=== PATIENT | female | born 1945 | race Caucasian/White ===

== ENCOUNTER 2019-05-29 16:37 | Emergency (ER) | payer MEDICARE, BC ==
--- NOTE | 2019-05-29 18:03 | ED ---
General Adult HPI - General Chief complaint: Fall Stated complaint: fall, tail bone pain Time Seen by Provider: 05/29/19 16:58 Source: patient, RN notes reviewed Mode of arrival: ambulatory Limitations: no limitations - History of Present Illness Initial comments: Danielle is a 74-year-old female with a past medical history of CAD, COPD, hypertension who presents to the emergency department for a chief complaint of fall. 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 States that since that time she has had tailbone pain. Denies hitting her head. Denies any other injuries. Denies any weakness of the lower extremities. Denies any changes in bladder or bowel movements.Patient has no other complaints at this time including shortness of breath, chest pain, abdominal pain, nausea or vomiting, headache, or visual changes. - Related Data Allergies Allergy/AdvReac Type Severity Reaction Status Date / Time No Known Allergies Allergy Verified 05/29/19 16:46 Review of Systems ROS Statement: Those systems with pertinent positive or pertinent negative responses have been documented in the HPI. ROS Other: All systems not noted in ROS Statement are negative. Past Medical History Past Medical History: Coronary Artery Disease (CAD), COPD, Hypertension, Thyroid Disorder History of Any Multi-Drug Resistant Organisms: None Reported Past Surgical History: Section, Tonsillectomy Past Psychological History: No Psychological Hx Reported Smoking Status: Current every day smoker Past Alcohol Use History: Occasional Past Drug Use History: None Reported General Exam Limitations: no limitations General appearance: alert, in no apparent distress Head exam: Present: atraumatic, normocephalic, normal inspection Eye exam: Present: normal appearance, PERRL, EOMI. Absent: scleral icterus, conjunctival injection, periorbital swelling ENT exam: Present: normal exam, mucous membranes moist Neck exam: Present: normal inspection, full ROM. Absent: tenderness, meningismus, lymphadenopathy Respiratory exam: Present: normal lung sounds bilaterally. Absent: respiratory distress, wheezes, rales, rhonchi, stridor Cardiovascular Exam: Present: regular rate, normal rhythm, normal heart sounds. Absent: systolic murmur, diastolic murmur, rubs, gallop, clicks Back exam: Present: other (Patient has coccyx tenderness, no lumbar spine tenderness). Absent: vertebral tenderness Neurological exam: Present: alert, oriented X3, CN II-XII intact Psychiatric exam: Present: normal affect, normal mood Course Vital Signs 05/29/19 16:43 Temperature 98.4 F Pulse Rate 80 Respiratory 16 Rate Blood Pressure 158/85 O2 Sat by Pulse 98 Oximetry Medical Decision Making - Medical Decision Making 74-year-old female percent to the emergency department for a chief complaint of fall 2 days ago. Patient was trying to put up a child when she fell backwards onto her tailbone. States she has to lay on her side because it hurts to lay on her tailbone. Denies hip pain. Denies upper back pain. No lumbar spine tenderness. Patient does have coccygeal tenderness. X-ray of the pelvis shows a normal pelvis. Straight of the lumbar spine shows no acute abnormality. There is a 10% anterior wedging of L1 that is probably old. X-ray shows a negative sacrum and coccyx exam as well. Discussed use of narcotic medicine in elderly causing palpitations including risk of falls. However patient's family very much wants patient to have pain medication as she is not sleeping. Patient will be given a starter pack of Tylenol 3 but recommended following up with primary care for further pain medication management. Recommended returning here if she has any worsening symptoms. Disposition Clinical Impression: Back pain, Coccygeal contusion Disposition: HOME SELF-CARE Condition: Good Instructions (If sedation given, give patient instructions): Coccyx Injury (ED) Additional Instructions: Please take Tylenol 3 for pain. Make sure to follow up with your primary care tomorrow. Return to the emergency department if you have any worsening symptoms. Is patient prescribed a controlled substance at d/c from ED?: No Referrals: João Galicia DO [Primary Care Provider] - 1-2 days Time of Disposition: 18:51
--- NOTE | 2019-05-29 18:15 | XR ---
EXAMINATION TYPE: XR sacrum coccyx DATE OF EXAM: 05/29/2019 COMPARISON: NONE HISTORY: Fall. Pain. TECHNIQUE: 3 views FINDINGS: Segments have normal alignment. Sacroiliac joints appear intact. There is no evidence of a fracture. IMPRESSION: Negative sacrum and coccyx exam.
--- NOTE | 2019-05-29 18:16 | XR ---
EXAMINATION TYPE: XR pelvis AP view DATE OF EXAM: 05/29/2019 COMPARISON: NONE HISTORY: Pain TECHNIQUE: Single view FINDINGS: Pelvic ring is intact. Proximal femurs and hip joints are intact. Sacroiliac joints appear normal. IMPRESSION: Normal pelvis.
--- NOTE | 2019-05-29 18:18 | XR ---
EXAMINATION TYPE: XR lumbar spine 2 or 3V DATE OF EXAM: 05/29/2019 COMPARISON: NONE HISTORY: Fall. Pain. TECHNIQUE: 3 views FINDINGS: Vertebra have normal alignment. There is some osteopenia. Posterior elements are intact. Th ere is 10% anterior wedging of L1 vertebra that is probably old. Sacroiliac joints are intact. IMPRESSION: No acute abnormality of the lumbar spine.
[2019-05-29] MEDS ORDERED: Acetaminophen-Codeine 300-30mg TAB PO STA (18:51)
[2019-05-29] MEDS ORDERED: ACET/COD 300 MG/30 MG STARTER PACK 6 TAB BTL PO STA (18:51)
[2019-05-29 19:05] VITALS: BP 128/79; PULSE 66; RESP 18; TEMP 98.7
== END 2019-05-29 19:04 | disposition home or self-care (01) ==
LOC: EC 16:37
DX: S30.0XXA Contusion of lower back and pelvis, initial encounter (principal); F17.200 Nicotine dependence, unspecified, uncomplicated; W01.0XXA Fall on same level from slipping, tripping and stumbling without subsequent striking against object, initial encounter; Y93.89 Activity, other specified; Y92.009 Unspecified place in unspecified non-institutional (private) residence as the place of occurrence of the external cause
CPT/HCPCS: 72100; 72170; 72220; 99283

== ENCOUNTER 2019-06-12 15:49 | Emergency (ER) | payer BC, MEDICARE ==
[2019-06-12 16:07] VITALS: TEMP 98.1
[2019-06-12] MEDS ORDERED: KETOROLAC 30 MG/ML 1 ML VIAL IM STA ×2 (16:38→19:19)
--- NOTE | 2019-06-12 17:26 | ED ---
Trauma HPI - General Chief Complaint: Extremity Injury, Upper Stated Complaint: LOWER BACK AND HIP PAIN Time Seen by Provider: 06/12/19 16:18 Source: patient Mode of arrival: ambulatory Limitations: no limitations - History of Present Illness Initial Comments: The patient is a 74-year-old female presents to the emergency room with reported coccyx pain. The patient sustained a fall on May 28. She was brought into the emergency department the following day by her daughter. At that time she did have x-rays performed which demonstrated no acute fracture. She then followed up after that with her primary care physician. Primary care physician did put her on Motrin and Tylenol threes. She states that she's been taking the medication without improvement in her pain. Daughter states the pain has been so significant that he she is not eating. She reports nausea. She continues to ambulates on her own without difficulty. The pain is located in the patient's tailbone without radiation. States it is tender to touch. She denies any hip pain or lower lumbar pain. The patient for sustained a fall when she was attempting to catch a baby. She landed backwards on her tailbone. She denies hitting her head or loss of consciousness. She denies any weakness or numbness or tingling in her lower extremities. She denies any saddle anesthesia or bowel or bladder incontinence or retention. She denies dysuria, hematuria or difficulty voiding. She denies any melanotic stools or hematochezia. She does admit to constipation from the Tylenol threes. Denies diarrhea. She denies any pain in her knees ankles are in her feet. She does have an appointment on Monday with her primary care physician however as the pain is not controlled they do present sooner for evaluation - Related Data Home Medications Medication Instructions Recorded Confirmed Acetaminophen with Codeine 1 tab PO Q6H PRN 06/12/19 06/12/19 [Tylenol w/codeine #3] Ibuprofen [Motrin] 800 mg PO DAILY PRN 06/12/19 06/12/19 Levothyroxine Sodium [Synthroid] 75 mcg PO DAILY 06/12/19 06/12/19 Lisinopril [Zestril] 10 mg PO DAILY 06/12/19 06/12/19 amLODIPine [Norvasc] 5 mg PO BID 06/12/19 06/12/19 Previous Rx's Medication Instructions Recorded Docusate [Colace] 100 mg PO DAILY #30 capsule 06/12/19 Hydrocodone/Acetaminophen [Clyde 1 tab PO Q6HR PRN #12 tab 06/12/19 5-325] Ibuprofen 400 mg PO Q8HR #20 tablet 06/12/19 Allergies Allergy/AdvReac Type Severity Reaction Status Date / Time No Known Allergies Allergy Verified 06/12/19 16:45 Review of Systems ROS Statement: Those systems with pertinent positive or pertinent negative responses have been documented in the HPI. ROS Other: All systems not noted in ROS Statement are negative. Past Medical History Past Medical History: Coronary Artery Disease (CAD), COPD, Hypertension, Thyroid Disorder History of Any Multi-Drug Resistant Organisms: None Reported Past Surgical History: Section, Tonsillectomy Past Psychological History: No Psychological Hx Reported Smoking Status: Current every day smoker Past Alcohol Use History: Occasional Past Drug Use History: None Reported General Exam Limitations: no limitations Course Vital Signs 06/12/19 06/12/19 16:02 19:44 Temperature 98.1 F Pulse Rate 72 76 Respiratory 16 18 Rate Blood Pressure 159/81 148/76 O2 Sat by Pulse 96 96 Oximetry Medical Decision Making - Medical Decision Making Upon arrival the patient was placed into room 13. A thorough history and physical exam was performed. Because of the reported symptoms I did provide the patient with 30 mg IM of Toradol. She is sent over for a CT of her abdomen and pelvis, lumbar spine and sacrum. The patient was reevaluated admits to improvement in her pain with the Toradol administration. Discuss results of the imaging with the patient. I informed her that there does not appear to be any acute fractures at this time. The patient is requesting a second dose of Toradol and I did provide this to the patient. I discussed diagnosis, differential and treatment options. The patient is requesting something stronger than Tylenol threes at home. I will provide the patient with a Clyde 5/325 mg and provide her with a short course home. She does sign and opioids start talking form after the side effect profiles discussed. The patient is to continue alternating Clyde with Motrin. She is to stop taking the Tylenol threes. The patient does have significant constipation on imaging and therefore she is given a bottle of mag citrate with directions. She is to follow-up with her primary care doctor at her scheduled appointment on Monday. She may need an MRI. The patient was reevaluated and continued to not show signs of cauda equina. She was then discharged home ambulatory in stable condition Disposition Clinical Impression: Coccygeal contusion, Back pain Disposition: HOME SELF-CARE Condition: Stable Instructions (If sedation given, give patient instructions): Coccyx Injury (ED) Additional Instructions: Please follow-up with your primary care doctor on Monday. You may need an MRI. Return to the emergency room for any new or worsening symptoms Prescriptions: Docusate [Colace] 100 mg PO DAILY #30 capsule Ibuprofen 400 mg PO Q8HR #20 tablet Hydrocodone/Acetaminophen [Clyde 5-325] 1 tab PO Q6HR PRN #12 tab PRN Reason: Pain Is patient prescribed a controlled substance at d/c from ED?: Yes When asked, does pt state using other controlled substances?: Yes If prescribed controlled substance>3 days was MAPS reviewed?: Prescribed <3 Days If opioid is for acute pain is fill amount 7 days or less?: Yes If Rx opioid, was Start Talking consent form obtained?: Yes Referrals: João Galicia DO [Primary Care Provider] - 1-2 days Time of Disposition: 19:24
--- NOTE | 2019-06-12 18:44 | CT ---
EXAMINATION TYPE: CT sacrum wo con DATE OF EXAM: 06/12/2019 COMPARISON: None HISTORY: Low back and hip pain. CT DLP: 235.4 (all 3 exams scanned together) mGycm Automated exposure control for dose reduction was used. FINDINGS: Axial and coronal and sagittal high resolution bone reconstruction algorithm CT data sets w ere obtained. Axial soft tissue reconstruction high-resolution CT imaging was also obtained. There is no fracture or malalignment. No focal skeletal lesion. The sacroiliac joints are congruent. There is generalized osteopenia. Spinal stenosis pattern noted at the L4-5 and L5-S1 levels. IMPRESSION: 1. No acute process. 2. Generalized osteopenia. 3. Spondylosis.
--- NOTE | 2019-06-12 18:54 | CT ---
EXAMINATION TYPE: CT lumbar spine wo con DATE OF EXAM: 06/12/2019 6:01 PM COMPARISON: None HISTORY: Low back and hip pain. CT DLP: 235.4 mGycm Automated exposure control for dose reduction was used. TECHNIQUE: Unenhanced CT of the lumbar spine was performed. Bone and soft tissue window settings are submitted as well as coronal and sagittal reconstructions. FINDINGS: There is no fracture or malalignment. No pars interarticularis defects. No focal skeletal lesions. No incidental paraspinal pathology. Is no focal disc extrusion or protrusion. There is, however, generalized osteopenia. At L1-2 and L2-3, mild spondylosis changes but no significant findings. At L3-4 there is mild bilateral lateral recess narrowing due to mild degenerative disc bulging and bi lateral ligamentum flavum/facet hypertrophy. At L4-5 there is prominent bilateral lateral recess stenosis due to prominent circumferential disc bu lging and ligamentum flavum/facet hypertrophy. No significant neural foraminal narrowing. At L5-S1 there is mild bilateral lateral recess narrowing due to ligamentum flavum/facet hypertrophy and minimal sequestered disc bulging. IMPRESSION: 1. Negative for fracture or malalignment, or focal skeletal lesion. 2. Positive for generalized osteopenia. 3. L4-5 lateral recess stenosis.
--- NOTE | 2019-06-12 18:59 | CT ---
EXAMINATION TYPE: CT abdomen pelvis wo con DATE OF EXAM: 06/12/2019 COMPARISON: None HISTORY: Low back and hip pain. CT DLP: 235.4 mGycm Automated exposure control for dose reduction was used. TECHNIQUE: Helical acquisition of images was performed from the lung bases through the pelvis. FINDINGS: Limitation: Within the limitations of noncontrast CT, which are more pronounced given the fact that t here is so little adipose within the abdomen and pelvis of this patient, the following observations a re made. LUNG BASES: No acute findings. LIVER/GB: No significant abnormality is appreciated. PANCREAS: No significant abnormality is seen. SPLEEN: No significant abnormality is seen. ADRENALS: No significant abnormality is seen. KIDNEYS: No significant abnormality is seen. FREE AIR: No free air is visualized RETROPERITONEAL ADENOPATHY: None visualized REPRODUCTIVE ORGANS: No significant abnormality is seen URINARY BLADDER: No significant abnormality is seen. PELVIC ADENOPATHY: None visualized. OSSEOUS STRUCTURES: No new process or focal lesion. There is generalized osteopenia. BOWEL: No process. However, there is a marked volume of stool throughout the colon. IMPRESSION: 1. CONSTIPATION. 2. OSTEOPENIA.
[2019-06-12] MEDS ORDERED: HYDROcodone/APAP 5-325MG 1 EACH TAB PO STA (19:18)
[2019-06-12] MEDS ORDERED: MAGNESIUM CITRATE 296 ML BOTTLE PO ONE (19:18)
[2019-06-12 19:49] VITALS: BP 148/76; PULSE 76; RESP 18
== END 2019-06-12 19:45 | disposition home or self-care (01) ==
LOC: EC 15:49
DX: S30.0XXA Contusion of lower back and pelvis, initial encounter (principal); K59.00 Constipation, unspecified; R11.0 Nausea; I25.10 Atherosclerotic heart disease of native coronary artery without angina pectoris; I10 Essential (primary) hypertension; E07.9 Disorder of thyroid, unspecified; F17.200 Nicotine dependence, unspecified, uncomplicated; Z79.890 Hormone replacement therapy; Z79.899 Other long term (current) drug therapy; W19.XXXA Unspecified fall, initial encounter
CPT/HCPCS: 99284; 96372 ×2; 72131; 74176; 72192; J1885

== ENCOUNTER 2019-07-15 15:15 | Observation (INO) | payer BC, MEDICARE ==
[2019-07-15] MEDS ORDERED: SODIUM CHLORIDE 0.9% 1,000 ML IV ONE ×2 (15:43→20:42)
[2019-07-15 16:14] LABS: Basophils # (A) 0.1 k/uL (0-0.2); Basophils % (A) 1 %; Eosinophils # (A) 0.5 k/uL (0-0.7); Eosinophils % (A) 5 %; HCT 43.7 % (34.0-46.0); HGB 14.3 gm/dL (11.4-16.0); Lymphocytes # (A) 1.1 k/uL (1.0-4.8); Lymphocytes % (A) 9 %; MCH 31.7 pg (25.0-35.0); MCHC 32.8 g/dL (31.0-37.0); MCV 96.5 fL (80.0-100.0); Mean Platelet Volume 7.1; Monocytes # (A) 0.9 k/uL (0-1.0); Monocytes % (A) 8 %; Neutrophils # (A) 9.2 k/uL (1.3-7.7); Neutrophils % (A) 76 %; Platelet Count 539 k/uL (150-450); RBC 4.53 m/uL (3.80-5.40); RDW 13.2 % (11.5-15.5)
[2019-07-15 16:16] LABS: ALT 28 U/L (9-52); AST 25 U/L (14-36); African American GFR (CKD) >90 (>60 ml/min/1.73 sqM); Albumin 3.9 g/dL (3.5-5.0); Alkaline Phosphatase 54 U/L (38-126); Anion Gap 8 mmol/L; Blood Urea Nitrogen 21 mg/dL (7-17); Calcium 9.5 mg/dL (8.4-10.2); Carbon Dioxide 31 mmol/L (22-30); Chloride 98 mmol/L (98-107); Creatine Kinase 27 U/L (30-135); Glucose 141 mg/dL (74-99); Magnesium 2.7 mg/dL (1.6-2.3); Phosphorus 3.2 mg/dL (2.5-4.5); Potassium 4.6 mmol/L (3.5-5.1); Salicylate <1.0 mg/dL; Sodium 137 mmol/L (137-145); Total Bilirubin 0.1 mg/dL (0.2-1.3); Total Protein 6.6 g/dL (6.3-8.2)
[2019-07-15 16:19] LABS: INR 0.9 (<1.2); Partial Thromboplastin Time 23.9 sec (22.0-30.0); Prothrombin Time 9.8 sec (9.0-12.0)
[2019-07-15] MEDS ORDERED: MORPHINE SULFATE 4 MG/ML SYRINGE IVP STA (16:23)
--- NOTE | 2019-07-15 16:25 | ED ---
Altered Mental Status HPI - General Chief Complaint: Altered Mental Status Stated Complaint: Fall, dizzy Time Seen by Provider: 07/15/19 15:41 Source: patient, RN notes reviewed, old records reviewed Mode of arrival: wheelchair Limitations: no limitations - History of Present Illness Initial Comments: This is a 74-year-old female the ER with multiple complaints multiple complaints. Driving around debility and weakness and appropriateness. Patient today with severe back pain sacral pain from a fall. Patient was told that she did break her coccyx bone. Patient has no loss of bowel or bladder no neurological complaints currently. Just increasing pain on her back, generalized weakness that she does have as well as decreased appetite as cause her to have severe decrease her activities of daily living and causing family to bring her in today. Aside from pain. Patient has no specific complaints does admit to some confusion and not feeling well, weakness MD Complaint: confusion (Occasional), decreased responsiveness (Occasional), weakness -: month(s) Severity: moderate Consistency of Symptoms: waxing and waning, getting worse Context: history of similar presentation, trauma (Trauma recently within the last 6 months) Associated Symptoms: weakness, difficulty walking - Related Data Home Medications Medication Instructions Recorded Confirmed Levothyroxine Sodium [Synthroid] 75 mcg PO DAILY 06/12/19 07/15/19 Lisinopril [Zestril] 10 mg PO DAILY 06/12/19 07/15/19 amLODIPine [Norvasc] 5 mg PO DAILY 06/12/19 07/15/19 Baclofen [Lioresal] 10 mg PO Q6H PRN 07/15/19 07/15/19 Magnesium Hydroxide [Milk of 2,400 mg PO ONCE PRN 07/15/19 07/15/19 Magnesia] Wheat Dextrin [Benefiber] 1 packet PO DAILY 07/15/19 07/15/19 Previous Rx's Medication Instructions Recorded Docusate [Colace] 100 mg PO DAILY #30 capsule 06/12/19 Hydrocodone/Acetaminophen [[place] 1 tab PO Q6HR PRN #12 tab 06/12/19 5-325] Allergies Allergy/AdvReac Type Severity Reaction Status Date / Time No Known Allergies Allergy Verified 07/15/19 16:13 Review of Systems ROS Statement: Those systems with pertinent positive or pertinent negative responses have been documented in the HPI. ROS Other: All systems not noted in ROS Statement are negative. Past Medical History Past Medical History: Coronary Artery Disease (CAD), COPD, Hypertension, Thyroid Disorder History of Any Multi-Drug Resistant Organisms: None Reported Past Surgical History: Section, Tonsillectomy Past Psychological History: No Psychological Hx Reported Smoking Status: Current every day smoker Past Alcohol Use History: Occasional Past Drug Use History: None Reported General Exam Limitations: no limitations General appearance: alert, in no apparent distress Head exam: Present: atraumatic, normocephalic, normal inspection Eye exam: Present: normal appearance, PERRL, EOMI. Absent: scleral icterus, conjunctival injection, periorbital swelling ENT exam: Present: normal exam, mucous membranes moist Neck exam: Present: normal inspection. Absent: tenderness, meningismus, lymphadenopathy Respiratory exam: Present: normal lung sounds bilaterally. Absent: respiratory distress, wheezes, rales, rhonchi, stridor Cardiovascular Exam: Present: regular rate, normal rhythm, normal heart sounds. Absent: systolic murmur, diastolic murmur, rubs, gallop, clicks GI/Abdominal exam: Present: soft, normal bowel sounds. Absent: distended, tenderness, guarding, rebound, rigid Extremities exam: Present: normal inspection, full ROM, normal capillary refill. Absent: tenderness, pedal edema, joint swelling, calf tenderness Back exam: Present: normal inspection Neurological exam: Present: alert, oriented X3, CN II-XII intact Psychiatric exam: Present: normal affect, normal mood Skin exam: Present: warm, dry, intact, normal color. Absent: rash Course Vital Signs 07/15/19 07/15/19 07/15/19 15:35 18:38 19:26 Temperature 98.7 F Pulse Rate 85 74 Respiratory 16 18 Rate Blood Pressure 109/65 155/83 134/81 O2 Sat by Pulse 96 93 L Oximetry 07/15/19 19:48 Temperature 98.8 F Pulse Rate 72 Respiratory 18 Rate Blood Pressure 142/91 O2 Sat by Pulse 94 L Oximetry - Reevaluation(s) Reevaluation #1: 07/15/19 18:51 Medical records reviewed Reevaluation #2: 07/15/19 18:51 Patient has improved pain control currently Medical Decision Making - Medical Decision Making 54 female the ER for evaluation of underlying weakness. Pain. Back pain. Altered mental status not acting appropriately not functioning appropriately and activities of daily living. No significant acute cause found for patient's symptoms here in the ER. Patient also to be discharged. Patient is having continued MENTAL STATUS DOES HAVE PERIODS OF LUCIDITY. FAMILY CONCERNED OVER PATIENT'S CHRONIC UNABLE TO CONTROL PAIN WELL PATIENT'S DECREASED APPETITE AND DIMINISHED ORAL INTAKE. - Lab Data Result diagrams: 07/15/19 15:54 07/15/19 15:54 Lab Results 07/15/19 07/15/19 07/15/19 Range/Units 15:54 15:54 15:54 WBC 12.0 H (3.8-10.6) k/uL RBC 4.53 (3.80-5.40) m/uL Hgb 14.3 (11.4-16.0) gm/dL Hct 43.7 (34.0-46.0) % MCV 96.5 (80.0-100.0) fL MCH 31.7 (25.0-35.0) pg MCHC 32.8 (31.0-37.0) g/dL RDW 13.2 (11.5-15.5) % Plt Count 539 H (150-450) k/uL Neutrophils % 76 % Lymphocytes % 9 % Monocytes % 8 % Eosinophils % 5 % Basophils % 1 % Neutrophils # 9.2 H (1.3-7.7) k/uL Lymphocytes # 1.1 (1.0-4.8) k/uL Monocytes # 0.9 (0-1.0) k/uL Eosinophils # 0.5 (0-0.7) k/uL Basophils # 0.1 (0-0.2) k/uL PT (9.0-12.0) sec INR (<1.2) APTT (22.0-30.0) sec Sodium 137 (137-145) mmol/L Potassium 4.6 (3.5-5.1) mmol/L Chloride 98 (98-107) mmol/L Carbon Dioxide 31 H (22-30) mmol/L Anion Gap 8 mmol/L BUN 21 H (7-17) mg/dL Creatinine 0.61 (0.52-1.04) mg/dL Est GFR (CKD-EPI)AfAm >90 (>60 ml/min/1.73 sqM) Est GFR (CKD-EPI)NonAf 89 (>60 ml/min/1.73 sqM) Glucose 141 H (74-99) mg/dL Calcium 9.5 (8.4-10.2) mg/dL Phosphorus 3.2 (2.5-4.5) mg/dL Magnesium 2.7 H (1.6-2.3) mg/dL Total Bilirubin 0.1 L (0.2-1.3) mg/dL AST 25 (14-36) U/L ALT 28 (9-52) U/L Alkaline Phosphatase 54 (38-126) U/L Ammonia 15 (<30) umol/L Creatine Kinase 27 L (30-135) U/L Troponin I (0.000-0.034) ng/mL Total Protein 6.6 (6.3-8.2) g/dL Albumin 3.9 (3.5-5.0) g/dL Urine Color Urine Appearance (Clear) Urine pH (5.0-8.0) Ur Specific [place] (1.001-1.035) Urine Protein (Negative) Urine Glucose (UA) (Negative) Urine Ketones (Negative) Urine Blood (Negative) Urine Nitrite (Negative) Urine Bilirubin (Negative) Urine Urobilinogen (<2.0) mg/dL Ur Leukocyte Esterase (Negative) Amorphous Sediment (None) /hpf Urine Mucus (None) /hpf Salicylates <1.0 mg/dL Urine Opiates Screen (NotDetected) Ur Oxycodone Screen (NotDetected) Urine Methadone Screen (NotDetected) Ur Propoxyphene Screen (NotDetected) Ur Barbiturates Screen (NotDetected) U Tricyclic Antidepress (NotDetected) Ur Phencyclidine Scrn (NotDetected) Ur Amphetamines Screen (NotDetected) U Methamphetamines Scrn (NotDetected) U Benzodiazepines Scrn (NotDetected) Urine Cocaine Screen (NotDetected) U Marijuana (THC) Screen (NotDetected) 07/15/19 07/15/19 07/15/19 Range/Units 15:54 15:54 19:07 WBC (3.8-10.6) k/uL RBC (3.80-5.40) m/uL Hgb (11.4-16.0) gm/dL Hct (34.0-46.0) % MCV (80.0-100.0) fL MCH (25.0-35.0) pg MCHC (31.0-37.0) g/dL RDW (11.5-15.5) % Plt Count (150-450) k/uL Neutrophils % % Lymphocytes % % Monocytes % % Eosinophils % % Basophils % % Neutrophils # (1.3-7.7) k/uL Lymphocytes # (1.0-4.8) k/uL Monocytes # (0-1.0) k/uL Eosinophils # (0-0.7) k/uL Basophils # (0-0.2) k/uL PT 9.8 (9.0-12.0) sec INR 0.9 (<1.2) APTT 23.9 (22.0-30.0) sec Sodium (137-145) mmol/L Potassium (3.5-5.1) mmol/L Chloride (98-107) mmol/L Carbon Dioxide (22-30) mmol/L Anion Gap mmol/L BUN (7-17) mg/dL Creatinine (0.52-1.04) mg/dL Est GFR (CKD-EPI)AfAm (>60 ml/min/1.73 sqM) Est GFR (CKD-EPI)NonAf (>60 ml/min/1.73 sqM) Glucose (74-99) mg/dL Calcium (8.4-10.2) mg/dL Phosphorus (2.5-4.5) mg/dL Magnesium (1.6-2.3) mg/dL Total Bilirubin (0.2-1.3) mg/dL AST (14-36) U/L ALT (9-52) U/L Alkaline Phosphatase (38-126) U/L Ammonia (<30) umol/L Creatine Kinase (30-135) U/L Troponin I <0.012 (0.000-0.034) ng/mL Total Protein (6.3-8.2) g/dL Albumin (3.5-5.0) g/dL Urine Color Yellow Urine Appearance Cloudy H (Clear) Urine pH 8.5 H (5.0-8.0) Ur Specific [place] 1.015 (1.001-1.035) Urine Protein Negative (Negative) Urine Glucose (UA) Negative (Negative) Urine Ketones Negative (Negative) Urine Blood Negative (Negative) Urine Nitrite Negative (Negative) Urine Bilirubin Negative (Negative) Urine Urobilinogen <2.0 (<2.0) mg/dL Ur Leukocyte Esterase Negative (Negative) Amorphous Sediment Rare H (None) /hpf Urine Mucus Rare H (None) /hpf Salicylates mg/dL Urine Opiates Screen Not Detected (NotDetected) Ur Oxycodone Screen Not Detected (NotDetected) Urine Methadone Screen Not Detected (NotDetected) Ur Propoxyphene Screen Not Detected (NotDetected) Ur Barbiturates Screen Not Detected (NotDetected) U Tricyclic Antidepress Not Detected (NotDetected) Ur Phencyclidine Scrn Not Detected (NotDetected) Ur Amphetamines Screen Not Detected (NotDetected) U Methamphetamines Scrn Not Detected (NotDetected) U Benzodiazepines Scrn Detected H (NotDetected) Urine Cocaine Screen Not Detected (NotDetected) U Marijuana (THC) Screen Not Detected (NotDetected) - EKG Data -: EKG Interpreted by Me (EKG shows normal sinus rhythm rate of 60, NV 160, QRS 70, QTc 399) - Radiology Data Radiology results: report reviewed (CT brain chest x-ray lumbar spine x-ray and x-ray KUB negative for acute disease), image reviewed Disposition Clinical Impression: Altered mental status, Weakness, Back pain, Dehydration Disposition: ADMITTED IP TO THIS [facility] Condition: Good Is patient prescribed a controlled substance at d/c from ED?: No Referrals: João Galicia DO [Primary Care Provider] - 1-2 days
--- NOTE | 2019-07-15 16:43 | CT ---
EXAMINATION TYPE: CT brain wo con DATE OF EXAM: 07/15/2019 COMPARISON: None HISTORY: Altered mental status. CT DLP: 1098.4 mGycm Automated exposure control for dose reduction was used. FINDINGS: There is mild cerebral cortical atrophy. There is no mass effect nor midline shift. There is no sign of intracranial hemorrhage. There is mild hypodensity in the white matter of the parietal lobes bilat erally. The calvarium is intact. IMPRESSION: MILD ATROPHY. MILD WHITE MATTER CHANGES PROBABLY DUE TO SMALL VESSEL ISCHEMIA. NO ACUTE INTRACRANIAL ABNORMALITY.
--- NOTE | 2019-07-15 16:45 | XR ---
EXAMINATION TYPE: XR chest 2V DATE OF EXAM: 07/15/2019 COMPARISON: NONE HISTORY: Falls. Confusion. TECHNIQUE: Frontal and lateral views of the chest are obtained. FINDINGS: Heart is normal. There is no heart failure. There is pleural thickening at the lung apices with 2 cm masslike density at the right lung apex. There is flattening of the diaphragm. There is osteopenia and anterior wedging of T9 and T8 T7 and T4 vertebra up to 60%. There are no hilar masses. IMPRESSION: COPD. Multiple thoracic compression fractures of uncertain age. Apical pleural scarring. Additional 2 cm somewhat rounded density at the right lung apex. Follow-up r ecommended. Comparison with old exam would be helpful.
[2019-07-15] MEDS ORDERED: SODIUM CHLORIDE 0.9% 1,000 ML IV STA (17:59)
--- NOTE | 2019-07-15 18:55 | XR ---
EXAMINATION TYPE: XR lumbosacral spine min 4V DATE OF EXAM: 07/15/2019 COMPARISON: 05/29/2019 HISTORY: Fall. Back pain. TECHNIQUE: 5 views FINDINGS: Lumbar vertebra have fairly normal alignment. There is some narrowing of L5-S1 disc space. Abdominal aorta is atheromatous. Posterior elements are intact. I see no compression fracture. Sacroi liac joints appear intact. IMPRESSION: Mild spondylotic change at L5-S1. No fracture. No change compared to old exam.
--- NOTE | 2019-07-15 18:56 | XR ---
EXAMINATION TYPE: XR KUB DATE OF EXAM: 07/15/2019 COMPARISON: NONE HISTORY: Confusion TECHNIQUE: 2 views supine FINDINGS: There is no sign of intestinal obstruction or pneumoperitoneum. Fecal pattern is normal. Th ere is no evidence of a mass. There are no pathologic calcifications over the kidneys. Lung bases bairon ear clear. IMPRESSION: Nonacute abdomen.
[2019-07-15 19:43] LABS: Amorphous Sediment,Urine Rare /hpf; Appearance,Urine Cloudy (Clear); Bilirubin,Urine Negative (Negative); Blood,Urine Negative (Negative); Color,Urine Yellow; Glucose,Urine (UA) Negative (Negative); Ketones,Urine Negative (Negative); Leukocyte Esterase,Urine Negative (Negative); Mucus,Urine Rare /hpf; Nitrite,Urine Negative (Negative); PH, Urine 8.5 (5.0-8.0); Protein,Urine Negative (Negative); Specific Gravity,Urine 1.015 (1.001-1.035); Urobilinogen,Urine <2.0 mg/dL (<2.0)
[2019-07-15 19:54] LABS: Amphetamine Screen,Urine Not Detected (NotDetected); Barbiturate Screen,Urine Not Detected (NotDetected); Benzodiazepines Screen,Urine Detected (NotDetected); Cocaine Screen,Urine Not Detected (NotDetected); Methadone Screen, Urine Not Detected (NotDetected); Opiate Screen,Urine Not Detected (NotDetected); Oxycodone Screen, Urine Not Detected (NotDetected); Phencyclidine Screen,Urine Not Detected (NotDetected); Tricyclic Antidepressant,Urine Not Detected (NotDetected); Urn Cannabinoid Scrn Not Detected (NotDetected)
[2019-07-15] MEDS ORDERED: POLYETHYLENE GLYCOL 3350 17 GM POWD.PACK PO STA (20:42)
[2019-07-15] MEDS: MORPHINE SULFATE 4 MG/ML SYRINGE IVP PRN (20:53)
[2019-07-16] MEDS: MORPHINE SULFATE 4 MG/ML SYRINGE IVP PRN ×4 (00:43→10:16)
[2019-07-16 01:08] LABS: Appearance,Urine Clear (Clear); Bilirubin,Urine Negative (Negative); Blood,Urine Negative (Negative); Color,Urine Light Yellow; Glucose,Urine (UA) Negative (Negative); Ketones,Urine Negative (Negative); Leukocyte Esterase,Urine Negative (Negative); Nitrite,Urine Negative (Negative); Protein,Urine Negative (Negative); Specific Gravity,Urine 1.007 (1.001-1.035); Urobilinogen,Urine <2.0 mg/dL (<2.0)
[2019-07-16 07:39] VITALS: RESP 16
[2019-07-16] MEDS ORDERED: POLYETHYLENE GLYCOL 3350 17 GM POWD.PACK PO SCH (09:00)
[2019-07-16 11:44] VITALS: BP 152/71; PULSE 57; TEMP 97.9
[2019-07-16] MEDS ORDERED: HYDROcodone/APAP 5-325MG 1 EACH TAB PO PRN (13:19)
[2019-07-16] MEDS ORDERED: BACLOFEN 10 MG TAB PO PRN (13:19)
[2019-07-16] MEDS ORDERED: amLODIPine 5 MG TAB PO SCH (13:30)
[2019-07-16] MEDS ORDERED: LISINOPRIL 10 MG TAB PO SCH (13:30)
[2019-07-16] MEDS ORDERED: LEVOTHYROXINE 75 MCG TAB PO SCH (13:30)
[2019-07-16] MEDS ORDERED: DOCUSATE 100 MG CAP PO SCH (13:30)
[2019-07-16 15:13] VITALS: BMI 16.5
[2019-07-16] MEDS ORDERED: NAPROXEN 250 MG TAB PO STA (15:48)
[2019-07-16] MEDS ORDERED: ENOXAPARIN 40 MG/0.4 ML SYRINGE SQ SCH (16:00)
--- NOTE | 2019-07-16 23:51 | P.HPIM ---
History of Present Illness H&P Date: 07/16/19 Chief Complaint: Low back pain History of presenting complaint: This is a very pleasant 74-year-old patient of Dr. Galicia. Chronic stable medical conditions include coronary artery disease, COPD, hypertension, hypothyroid. Patient is a current smoker. Patient in May 14, followed up buttock and resulted in a fracture of her tailbone. Patient did follow with Dr. Heredia from [facility]. Patient does get some therapy but she was told no further intervention could be done. Patient's had pain on and off since that time. She does use a donut. She feels better active with walking. Every time she sits or in certain position the pain because much worse. She she does have not: Distal also giving her constipation. Because of the constipation and the back pain she is to see her again. Admitted for the same. Her qykhrfcu-[id number] is with her. Pain is localized to the tailbone. No fever no chills. Review of systems: GEN.: Tired EYES: None HEENT: None NECK: None RESPIRATORY: Occasional wheezing CARDIOVASCULAR: None GASTROINTESTINAL: Constipation GENITOURINARY: None MUSCULOSKELETAL: As above LYMPHATICS: None HEMATOLOGICAL: None PSYCHIATRY: Anxious NEUROLOGICAL: None Social history: Smoker. Alcohol occasionally. . Family history: Ulcers and hypertension Physical examination: VITAL SIGNS: 98.7, 85, 16, 109/65, 86% room air GENERAL: BMI 16.5, thin build laying in bed a bit uncomfortable. EYES: Pupils equal. Conjunctiva normal. HEENT: External appearance of nose and ears normal, oral cavity grossly normal. NECK: JVD not raised; masses not palpable. HEART: First and second heart sounds are normal; no edema. LUNGS: Respiratory rate normal; decreased breath sounds. ABDOMEN: Soft, nontender, liver spleen not palpable, no masses palpable. PSYCH: Alert and oriented x3; mood and affect normal. NEUROLOGICAL: Cranial nerves grossly intact; no facial asymmetry, power and sensation grossly intact. LYMPHATICS: No lymph nodes palpable in the axilla and neck MUSCULOSKELETAL: Tenderness over the sacrum localized INVESTIGATIONS, reviewed in the clinical context: White count 12 hemoglobin 14.3 potassium 4.6 bun 21 creatinine 0.61 Urine tox screen positive for benzodiazepine Lumbar spine x-ray showing mild spondylitic change at L5-S1 EKG tracing personally reviewed by me-normal sinus rhythm with poor R-wave progression Chest x-ray film personally reviewed by me-hyperinflated lungs Assessment: -Acute on chronic low back pain, specifically to the sacrum that patient had taken a fall a few months ago. She has seen by [facility] Dr. Heredia. He has told her no further intervention can be done. There is no evidence of any new fracture. -Opioid Induced constipation -Moderate protein calorie malnutrition. Patient has loss of body fat bony prominences and doesn't seem to eat much. This was confirmed with the patient's [id number] at the bedside. -COPD in a current smoker -Chronic nicotine dependence patient cigarette smoker -Coronary artery disease -Hypertension -Hypothyroid Plan: Care was discussed with the patient daughter looked at the bedside. Told him to avoid [place]. We'll give a bulk forming laxative. His antispasmodic. Talked about different modalities of pain control. Also discussed about diet to put on weight. At present I will give the patient does of naproxen. Patient will be discharged home later today. Past Medical History Past Medical History: Coronary Artery Disease (CAD), COPD, Hypertension, Thyroid Disorder History of Any Multi-Drug Resistant Organisms: None Reported Past Surgical History: Section, Tonsillectomy Past Anesthesia/Blood Transfusion Reactions: Previous Problems w/ Anesthesia Smoking Status: Current every day smoker - Past Family History Father Additional Family Medical History / Comment(s): ulcers Mother Family Medical History: Hypertension Additional Family Medical History / Comment(s): Spinal Stenosis Medications and Allergies Home Medications Medication Instructions Recorded Confirmed Type Hydrocodone/Acetaminophen [[place] 1 tab PO Q6HR PRN #12 tab 06/12/19 07/15/19 Rx 5-325] Levothyroxine Sodium [Synthroid] 75 mcg PO DAILY 06/12/19 07/15/19 History Lisinopril [Zestril] 10 mg PO DAILY 06/12/19 07/15/19 History amLODIPine [Norvasc] 5 mg PO DAILY 06/12/19 07/15/19 History Baclofen [Lioresal] 10 mg PO Q6H PRN 07/15/19 07/15/19 History Wheat Dextrin [Benefiber] 1 packet PO DAILY 07/15/19 07/15/19 History Naproxen [Naprosyn] 250 mg PO TID PRN #60 tab 07/16/19 Rx Allergies Allergy/AdvReac Type Severity Reaction Status Date / Time No Known Allergies Allergy Verified 07/15/19 21:39 Physical Exam Vitals: Vital Signs Temp Pulse Pulse Pulse Resp BP BP 07/16/19 11:42 97.9 F 57 L 16 152/71 07/16/19 07:38 98.4 F 63 16 110/61 07/16/19 04:53 97.7 F 60 14 122/55 07/16/19 02:57 16 07/16/19 00:00 16 07/15/19 22:06 16 07/15/19 21:42 97.9 F 77 16 147/74 07/15/19 20:51 78 18 131/67 07/15/19 19:48 98.8 F 72 18 142/91 07/15/19 19:26 74 18 134/81 07/15/19 18:38 155/83 07/15/19 15:35 98.7 F 85 16 109/65 Pulse Ox 07/16/19 11:42 95 07/16/19 07:38 93 L 07/16/19 04:53 98 07/16/19 02:57 07/16/19 00:00 07/15/19 22:06 07/15/19 21:42 95 07/15/19 20:51 93 L 07/15/19 19:48 94 L 07/15/19 19:26 93 L 07/15/19 18:38 07/15/19 15:35 96 Intake and Output 07/15/19 07/16/19 07/16/19 22:59 06:59 14:59 Output Total 700 200 Balance -700 -200 Output: Urine 700 200 Straight 700 Other: Voiding Method Toilet # Voids 1 # Bowel Movements 0 Weight 40.823 kg Results CBC & Chem 7: 07/15/19 15:54 07/15/19 15:54 Labs: Abnormal Lab Results - Last 24 Hours (Table) 07/15/19 07/15/19 07/15/19 Range/Units 15:54 15:54 19:07 WBC 12.0 H (3.8-10.6) k/uL Plt Count 539 H (150-450) k/uL Neutrophils # 9.2 H (1.3-7.7) k/uL Carbon Dioxide 31 H (22-30) mmol/L BUN 21 H (7-17) mg/dL Glucose 141 H (74-99) mg/dL Magnesium 2.7 H (1.6-2.3) mg/dL Total Bilirubin 0.1 L (0.2-1.3) mg/dL Creatine Kinase 27 L (30-135) U/L Urine Appearance Cloudy H (Clear) Urine pH 8.5 H (5.0-8.0) Amorphous Sediment Rare H (None) /hpf Urine Mucus Rare H (None) /hpf U Benzodiazepines Scrn Detected H (NotDetected) Thrombosis Risk Factor Assmnt - Choose All That Apply Each Risk Factor Represents 3 Points: Age 75 years or older Thrombosis Risk Factor Assessment Total Risk Factor Score: 3 Thrombosis Risk Factor Assessment Level: Moderate Risk
--- NOTE | 2019-07-16 23:55 | P.DS ---
Providers Date of admission: 07/15/19 20:42 Expected date of discharge: 07/16/19 Attending physician: Sarwat Cabrera Consults: 07/16/19 15:20 Consult Physician Routine Consulting Provider: Christophe Trevino Consult Reason/Comments: back pain/fall Do you want consulting provider notified?: Yes [facility] care [facility] Course: Chief Complaint: Tailbone pain Hospital course: This is a very pleasant 74-year-old patient of Dr. Gailcia. Chronic stable medical conditions include coronary artery disease, COPD, hypertension, hypothyroid. Patient is a current smoker. Patient in May 14, followed up buttock and resulted in a fracture of her tailbone. Patient did follow with Dr. Heredia from [facility]. Patient does get some therapy but she was told no further intervention could be done. Patient's had pain on and off since that time. She does use a donut. She feels better active with walking. Every time she sits or in certain position the pain because much worse. She she does have not: Distal also giving her constipation. Because of the constipation and the back pain she is to see her again. Admitted for the same. Her idzbqtvb-[id number] is with her. Pain is localized to the tailbone. No fever no chills. X-rays were negative for fracture. Patient had opioid-induced constipation. Had a very lengthy talk with the patient and the daughter. About different pain control modalities. Overactivity. Also discussed methods of improving weight. Also advised him again use of narcotics. The expressed understanding of the same. Patient has been seen by Dr. Heredia in the past. Did put the patient on NSAIDs. 2. Taken as needed. Physical examination: VITAL SIGNS: 98.8, 72, 18, 140-191, 94% room air GENERAL: BMI 16.5, thin build laying in bed a bit uncomfortable. EYES: Pupils equal. Conjunctiva normal. HEENT: External appearance of nose and ears normal, oral cavity grossly normal. NECK: JVD not raised; masses not palpable. HEART: First and second heart sounds are normal; no edema. LUNGS: Respiratory rate normal; decreased breath sounds. ABDOMEN: Soft, nontender, liver spleen not palpable, no masses palpable. PSYCH: Alert and oriented x3; mood and affect normal. NEUROLOGICAL: Cranial nerves grossly intact; no facial asymmetry, power and sensation grossly intact. LYMPHATICS: No lymph nodes palpable in the axilla and neck MUSCULOSKELETAL: Tenderness over the sacrum localized INVESTIGATIONS, reviewed in the clinical context: White count 12 hemoglobin 14.3 potassium 4.6 bun 21 creatinine 0.61 Urine tox screen positive for benzodiazepine Lumbar spine x-ray showing mild spondylitic change at L5-S1 EKG tracing personally reviewed by me-normal sinus rhythm with poor R-wave p rogression Chest x-ray film personally reviewed by me-hyperinflated lungs Assessment: -Acute on chronic low back pain, specifically to the sacrum that patient had taken a fall a few months ago. She has seen by [facility] Dr[facility] Heredia. He has told her no further intervention can be done. There is no evidence of any new fracture. -Opioid Induced constipation -Moderate protein calorie malnutrition. Patient has loss of body fat bony prominences and doesn't seem to eat much. This was confirmed with the patient's [id number] at the bedside. -COPD in a current smoker -Chronic nicotine dependence patient cigarette smoker -Coronary artery disease -Hypertension -Hypothyroid Plan: Disposition home Patient Condition at Discharge: Stable Plan - Discharge Summary New Discharge Prescriptions: New Naproxen [Naprosyn] 250 mg PO TID PRN #60 tab PRN Reason: Pain Continue amLODIPine [Norvasc] 5 mg PO DAILY Lisinopril [Zestril] 10 mg PO DAILY Levothyroxine Sodium [Synthroid] 75 mcg PO DAILY Hydrocodone/Acetaminophen [[place] 5-325] 1 tab PO Q6HR PRN #12 tab PRN Reason: Pain Baclofen [Lioresal] 10 mg PO Q6H PRN PRN Reason: Muscle Spasm Wheat Dextrin [Benefiber] 1 packet PO DAILY Discontinued Docusate [Colace] 100 mg PO DAILY #30 capsule Magnesium Hydroxide [Milk of Magnesia] 2,400 mg PO ONCE PRN PRN Reason: Constipation Discharge Medication List Hydrocodone/Acetaminophen [[place] 5-325] 1 tab PO Q6HR PRN #12 tab 06/12/19 [Rx] Levothyroxine Sodium [Synthroid] 75 mcg PO DAILY 06/12/19 [History] Lisinopril [Zestril] 10 mg PO DAILY 06/12/19 [History] amLODIPine [Norvasc] 5 mg PO DAILY 06/12/19 [History] Baclofen [Lioresal] 10 mg PO Q6H PRN 07/15/19 [History] Wheat Dextrin [Benefiber] 1 packet PO DAILY 07/15/19 [History] Naproxen [Naprosyn] 250 mg PO TID PRN #60 tab 07/16/19 [Rx] Follow up Appointment(s)/Referral(s): João Galicia DO [Primary Care Provider] - 1-2 days Discharge Disposition: HOME SELF-CARE
== END 2019-07-16 16:40 | disposition home or self-care (01) ==
LOC: EC 15:15 → 1SOBS 20:42
PROVIDERS: ADMIT Hospitalist; ATTEND Hospitalist
DX: G89.29 Other chronic pain (principal); M54.5 Low back pain; Z91.81 History of falling; K59.03 Drug induced constipation; T40.2X5A Adverse effect of other opioids, initial encounter; E44.0 Moderate protein-calorie malnutrition; Z68.1 Body mass index [BMI] 19.9 or less, adult; J44.9 Chronic obstructive pulmonary disease, unspecified; F17.210 Nicotine dependence, cigarettes, uncomplicated; I25.10 Atherosclerotic heart disease of native coronary artery without angina pectoris; I10 Essential (primary) hypertension; E86.0 Dehydration; E03.9 Hypothyroidism, unspecified; Z79.890 Hormone replacement therapy; Z79.899 Other long term (current) drug therapy; Z79.1 Long term (current) use of non-steroidal anti-inflammatories (NSAID); Z79.891 Long term (current) use of opiate analgesic; Z82.49 Family history of ischemic heart disease and other diseases of the circulatory system; Z82.69 Family history of other diseases of the musculoskeletal system and connective tissue
CPT/HCPCS: 96376 ×2; 96361; 96374; 99285; 36415; 93005; 97162; 97166; 80053; 82140; 82550; 83735; 84100; 84484; 85025; 85610; 85730; 81003; 81001; 80306; 83520; 87086; 72110; 71046; 74018; 70450; G0378 ×2; J2270 ×2

== ENCOUNTER → 2019-07-25 | Outpatient (CLI) | payer BC ==
--- NOTE | 2019-07-25 13:29 | MR ---
MR brain without contrast HISTORY: Memory loss, confusion and dizziness Multiplanar multisequence imaging through the brain. Fast brain protocol utilized due to patient's in ability to cooperate. Correlation CT brain 07/15/2019 There is no restricted diffusion. Corpus callosum, pituitary, cervical medullary junction, cerebellop ontine angles are within normal limits. There are expected vascular flow voids. There is no hemorrhag e or hydrocephalus. Periventricular, pericallosal, subcortical and juxtacortical confluent and scatte red hyperintensities are present on inversion recovery and T2-weighted sequences. Approximately 40-50 lesions are present. Cortical atrophy is likely age-related. Mild inflammatory change present within the mastoid air cells. Paranasal sinuses are well aerated. Orbits show symmetric appearance. IMPRESSION: Age-related changes of atrophy and chronic small vessel ischemia.
== END | disposition home or self-care (01) ==
LOC: RADMRIMAIN 09:06
PROVIDERS: ATTEND Family Medicine
DX: G31.1 Senile degeneration of brain, not elsewhere classified (principal); I67.82 Cerebral ischemia
CPT/HCPCS: 70551